=== PATIENT | female | born 1965 | race Caucasian/White ===

== ENCOUNTER → 2016-12-20 | Outpatient (CLI) | payer OTHER ==
[~2016-12-20] MED LIST: FLOVENT 22120 INHALA IH; INCRUSE ELLI62.5 MCG IH; NOHOMEMEDS; NORCO 5/3251 TABLET PO; PERCOCET 5/31 TABLET PO; STOOL SOFTENER250 MG PO; VENTOLIN17 GM IH; ZOFRAN ODT4 MG PO; ZOFRAN4 MG PO
== END | disposition home or self-care (01) ==
LOC: CDC 08:00
DX: G56.01 Carpal tunnel syndrome, right upper limb (principal); M65.311 Trigger thumb, right thumb; M65.331 Trigger finger, right middle finger; R94.31 Abnormal electrocardiogram [ECG] [EKG]
CPT/HCPCS: 93000